=== PATIENT | female | born 1990 | race Caucasian/White ===

== ENCOUNTER 2017-04-30 15:00 | Inpatient (IN) | payer OTHER ==
--- NOTE | ~2017-04-30 | HP ---
Unit #: [id number] #: [id number] Patient: JULIA CAREY [id number] [place] [address] [id number] MR#: [id number] NAME: JULIA CAREY ROOM: [facility] Age: 26 Sex: F Admission Date: 04/30/2017 : 1990 Attending Physician: Randell White M.D. Admitting Physician: Randell White M.D. Primary Care Physician: Primary Care Physician No HISTORY AND PHYSICAL HISTORY OF PRESENT ILLNESS Julia is a 26 year old admitted to [facility] because of her continued illicit substance abuse. She has had other admission to this facility for the same. PAST MEDICAL HISTORY 1. History of illicit substance abuse to include IV heroin and methamphetamine. 2. History of withdrawal seizures. PAST SURGICAL HISTORY Nothing reported. ALLERGIES No known drug allergies. SOCIAL HISTORY Smokes one pack per day. Denies alcohol. Admits to a history of illicit substance abuse to include IV heroin and methamphetamine. FAMILY HISTORY Medically noncontributory. REVIEW OF SYSTEMS CONSTITUTIONAL: No fever or chills. HEENT: Denies any sore throat, ear pain or runny nose. CARDIOVASCULAR: Denies chest pain, irregular heart rhythm or palpitations. CHEST: Denies shortness of breath or cough. No hemoptysis. GASTROINTESTINAL: Denies nausea, vomiting, diarrhea or chronic constipation. ENDOCRINE: Denies history of increased thirst or urination. No recent significant weight loss or gain. GENITOURINARY: Denies dysuria, frequency, or hematuria. SKIN: Denies any rashes. HEMATOLOGIC: Denies history of increased bleeding or bruising. MUSCULOSKELETAL: Denies any hot, swollen joints. No generalized muscle pain. NEUROLOGIC: Denies problems with vision or speech. No frequent, severe headaches. No numbness, tingling or weakness in any extremities. Denies loss of bladder or bowel control. CURRENT MEDICATIONS Unit #: [id number] #: [id number] Patient: JULIA CAREY Detox protocol PHYSICAL EXAMINATION GENERAL: Alert, well-nourished, in no apparent distress. VITAL SIGNS: Blood pressure 144/82, heart rate 78, respirations 16, temperature 98.6. WEIGHT: 1205 pounds. HEIGHT: 5'8". SKIN: Warm and dry without rash or lesion. HEENT: Normocephalic. TMs not viewed. Oral and nasal passages clear. Conjunctivae clear. Pupils equal, round and reactive to light and accommodation. Extraocular movements intact. NECK: Supple without lymphadenopathy or thyromegaly. HEART: Regular rate and rhythm without murmur. LUNGS: Clear. ABDOMEN: Soft, nontender. : Not done. EXTREMITIES: No evidence of cyanosis, clubbing or edema. Moves all extremities without focal deficit. NEUROLOGICAL: Grossly within normal limits. Cranial Nerves: II: Visual wong are intact. III, IV AND : Extraocular movements are intact. Pupils are equal, round and reactive to light. V: Facial sensation is grossly normal. VII: Facial movements and expression are normal. VIII: Auditory acuity grossly intact. IX, X: Uvula is midline. Phonation is normal. XI: Patient shrugs shoulders and turns head normally. XII: Tongue protrudes in the midline. Sensory and Motor Function: Sensory and motor sensation is grossly normal. Motor: moves all extremities well. Coordination: Gait is normal. Deep Tendon Reflexes: Intact. IMPRESSION Psychiatric admission. RECOMMENDATIONS PSYCHIATRIC: Per psychiatrist. MEDICAL: I see no contraindications to participating in facility's activities. MEDICAL PROGNOSIS Good. MEDICAL CONDITION Stable. Dictated by... Caron Jane PKatheAKathe-Darline. for Sebastian Aragon/lashaun TD: 05/01/2017 23:33 JOB #: [id number] Unit #: [id number] #: [id number] Patient: JULIA CAREY HISTORY AND PHYSICAL Page 1 of 1 X Caron Jane HISTORY AND PHYSICAL
--- NOTE | ~2017-04-30 | CO ---
Unit #: [id number] #: [id number] Patient: JULIA CAREY [id number] [place] [address] [id number] I MR#: [id number] NAME: JULIA CAREY ROOM: [facility] Age: 26 Sex: F Admission Date: 04/30/2017 : 1990 Attending Physician: Randell White M.D. Primary Care Physician: Primary Care Physician No Consultation Date: 05/01/2017 CONSULTATION REPORT SUBJECTIVE Julia is a 26-year-old who complains of a deep harsh cough productive of yellow sputum. We have been asked to assess and treat. OBJECTIVE She has had no recorded increased temperatures and she has no complaints of shortness of breath. OBJECTIVE GENERAL: Alert, well nourished, in no apparent distress. VITAL SIGNS: Blood pressure 120/70, heart rate 80, respirations 16, and T-max 98.6. HEENT: Normocephalic. TMs shiny bilaterally. Oral and nasal passages clear. NECK: Supple without lymphadenopathy. CHEST: Lungs clear. Deep harsh cough productive of yellow sputum noted. ASSESSMENT Upper respiratory infection. PLAN Levaquin 500 mg one p.o. t.i.d. x7 days and Tessalon Perles 200 mg one p.o. t.i.d. x5 days. Dictated by... Sonam MoraesAKathe-Darline. for Sebastian Aragon/arely TD: 05/05/2017 17:25 JOB #: [id number] Unit #: [id number] #: [id number] Patient: JULIA CARYE CONSULTATION REPORT Page 1 of 1 X Caron Jane CONSULTATION REPORT
--- NOTE | ~2017-04-30 | DS ---
Unit #: [id number] #: [id number] Patient: SHANTA CAREY [id number] [place] [address] [id number] I MR#: [id number] NAME: SHANTA CAREY ROOM: [facility] Age: 26 Sex: F Admission Date: 04/30/2017 : 1990 Discharge Date: 05/02/2017 Attending Physician: Randell White M.D. DISCHARGE SUMMARY REASON FOR ADMISSION The patient is a 26-year-old white female, admitted with a history of intravenous heroin addiction. HOSPITAL COURSE The patient was admitted to the [facility] unit and placed on routine detoxification protocol for opioids. She was begun on Zoloft 25 mg q.a.m. to address depressive symptoms and p.r.n. Vistaril and trazodone were also added. Levaquin and Tessalon Perles were ordered for an upper respiratory infection. On 05/02/2017, the patient was in much brighter spirits and was agreeable with plan for followup in the intensive outpatient program provided by this facility. As per her request, discharge was ordered. FINAL DIAGNOSES Opioid use disorder; dysthymic disorder; upper respiratory infection. DISPOSITION ON DISCHARGE The patient is discharged on the following medications: Zoloft 25 mg daily for depression, Vistaril 50 mg q.6 hours p.r.n. anxiety, trazodone 50 mg at h.s. p.r.n. insomnia, Levaquin 500 mg x7 days for upper respiratory infection, and Tessalon Perles 200 mg t.i.d. x5 days for cough. DISCHARGE INSTRUCTIONS No dietary or physical restrictions were placed upon the patient at the time of discharge. FOLLOWUP Followup will take place through the auspices of the intensive outpatient program provided by this facility. PROGNOSIS The patient's prognosis is considered fair. ADDENDUM The patient is instructed to contact this facility regarding results of pending HIV and hepatitis testing. Dictated by... Randell White M.D. CB/arely Unit #: [id number] #: [id number] Patient: SHANTA CAREY TD: 05/02/2017 17:16 JOB #: [id number] DISCHARGE SUMMARY Page 1 of 1 X Randell White MD DISCHARGE SUMMARY
--- NOTE | ~2017-04-30 | PA ---
Unit #: [id number] #: [id number] Patient: SHANTA CAREY [id number] [facility] [address] [place] [address] [id number] I MR#: [id number] NAME: SHANTA CAREY ROOM: [facility] Age: 26 Sex: F Admission Date: 04/30/2017 : 1990 Date of Assessment: 05/01/2017 Attending Physician: Randell White M.D. Admitting Physician: Randell White M.D. Primary Care Physician: Primary Care Physician No PSYCHIATRIC ASSESSMENT IDENTIFYING INFORMATION The patient is a 62-inus-own-year-old white female admitted to the [facility] unit with increasing abuse of heroin and complains of depression and anxiety. CHIEF COMPLAINT It is the same thing. INFORMANT Patient, reliability fair. HISTORY OF PRESENT ILLNESS The patient is a 26-year-old white female with a history of heroin abuse. She was last hospitalized at this facility in November of this year. She was at that time started on Celexa but reports that she can play with medication for only about one month. She did not increase her dose of medication but claims that it "made me hear voices. The patient reports that she has recently relapsed on heroin and has been reporting positive suicidal ideation with a plan to "jump off a tall building or shoot herself." The patient denies recent changes in sleep or appetite. She continues to complain of severe depression anxiety. For more complete history of present illness please refer to previous dictated noted. PAST PSYCHIATRIC HISTORY Reviewed no changes. PAST MEDICAL HISTORY Reviewed no changes. MEDICATIONS None. ALLERGIES None. FAMILY HISTORY Reviewed no changes. SOCIAL HISTORY Reviewed on changes. MENTAL STATUS EXAMINATION Examination at this time reveals the patient to be a well-developed Unit #: [id number] #: [id number] Patient: SHANTA CAREY well-nourished white female appearing stated age. She is in no apparent physical distress at the time of examination. She is awake, alert, and oriented in all spheres. Her mood is dysphoric her affect congruent. Speech is generally relevant coherent relevant and coherent. There are no gross deficits to memory or cognition noted. Intelligence is judged to be in the average range based on fund of knowledge. The patient is cooperative throughout the interview. She is currently endorsing positive suicidal ideation with a plan to overdose or jump from a tall building. She denies homicidal ideation. No denies any psychotic symptoms. Her insight and judgement appear to be intake. ASSETS AND LIABILITIES Motivation for change. Liabilities: Lack of resources. DIAGNOSTIC IMPRESSION 1. Opioid use disorder. 2. Dysthymic disorder. TREATMENT PLAN The patient remains hospitalized for safety and stabilization. We will begin a trial of Zoloft 25 mg p.o. a.m. and vistaril 50 mg q 6 hours p.r.n. anxiety will be head to added. However, the patient is again eileen warn of the potential of the deleterious effect that ongoing abuse of heroin will have on any potential recovery from her depressive symptoms. ESTIMATED LENGTH OF STAY Five to seven days. Dictated by... Randell White M.D. ZAIDA/lashaun TD: 05/02/2017 03:11 JOB #: [id number] PSYCHIATRIC ASSESSMENT Page 1 of 1 X Randell White MD X PSYCHIATRIC ASSESSMENT
== END 2017-05-02 15:30 | disposition home or self-care (01) | DRG 897 ==
LOC: P1E 15:18
DX: F11.10 Opioid abuse, uncomplicated (principal); R45.851 Suicidal ideations; F34.1 Dysthymic disorder; J06.9 Acute upper respiratory infection, unspecified